=== PATIENT | male | born 1965 ===

== ENCOUNTER 2017-04-01 15:01 | Emergency (ER) | payer BC ==
[2017-04-01 15:08] VITALS: O2SAT 99
[2017-04-01] MEDS ORDERED: Sodium Chloride 0.9% 1,000 ML IV STA (15:37)
--- NOTE | 2017-04-01 15:37 | C.PDOC ---
History Of Present Illness A 51 year old male, whose past medical includes, diabetes and hypertension, presents to the emergency department for left shoulder pain, which began 2 days ago. The patient admits to not taking his blood pressure medication and DM medications for the last 8 months. He notes his doctor no longer takes his insurance and he has not went to a new doctor. The patient reports he took Tylenol 2 days ago, which seemed to help the pain. When the pain came back he states he tried icy-hot and Advil. The patient denies any recent trauma, fever, chest pain, shortness of breath, nausea, vomiting, or any other complaints at this time. Time Seen by Provider: 04/01/17 15:10 Chief Complaint (Nursing): Upper Extremity Problem/Injury History Per: Patient History/Exam Limitations: no limitations Onset/Duration Of Symptoms: Days (x 2 days ) Current Symptoms Are (Timing): Still Present Past Medical History Vital Signs: Last Vital Signs Temp 98 F 04/01/17 17:45 Pulse 80 04/01/17 17:45 Resp 16 04/01/17 17:45 BP 150/92 H 04/01/17 17:45 Pulse Ox 99 04/01/17 17:45 Family History: States: No Known Family Hx - Social History Hx Alcohol Use: Yes Hx Substance Use: No Review Of Systems Except As Marked, All Systems Reviewed And Found Negative. Constitutional: Negative for: Fever Cardiovascular: Negative for: Chest Pain Respiratory: Negative for: Shortness of Breath Gastrointestinal: Negative for: Nausea, Vomiting Physical Exam - Physical Exam Appears: Well, Non-toxic, No Acute Distress Skin: Normal Color, Warm, Dry Head: Atraumatic, Normacephalic Eye(s): bilateral: Normal Inspection, PERRL, EOMI Nose: Normal Neck: Normal ROM, Other (mild left cervical tenderness) Back: Normal Inspection, Other (left sided trapezius tenderness; normal ROM) Extremity: Normal ROM Neurological/Psych: Oriented x3, Normal Speech, Normal Cognition ED Course And Treatment - Laboratory Results Result Diagrams: 04/01/17 15:49 04/01/17 15:49 O2 Sat by Pulse Oximetry: 99 - Other Rad C-Spine xray X-Ray: Viewed By Me, Read By Radiologist Interpretation: Accession No. : [id number]. Patient Name / ID : CHYNA GONZALES / [id number]. Exam Date : 04/01/2017 15:48:17 ( Approved ). Study Comment : Sex / Age : M / 51Y. Creator : Traec Lerma MD. Dictator : Trace Lerma MD. Experience Planning Strategist : Associate Chemist : Trace Lerma MD. Approver2 : Report Date : 04/01/2017 17:50:24. My Comment : . PROCEDURE: Cervical Spine Radiographs. HISTORY: Pain. COMPARISON: None. FINDINGS: BONES: Straightened curvature is appreciate. Multilevel spondylosis identified inferior cervical spine. No fracture or spondylolisthesis is identified. The odontoid process appears intact with normal-appearing C1-2 articulation and craniocervical junction. DISC SPACES: Advanced degenerate disease is suggested at C6-7. SOFT TISSUES: Normal. No prevertebral soft tissue swelling. OTHER FINDINGS: None. IMPRESSION: Degenerative spondylosis C6-7 without fracture or spondylolisthesis identified. Straightened cervical curvature is encountered. CXR X-Ray: Viewed By Me, Read By Radiologist Interpretation: Accession No. : [id number]. Patient Name / ID : CHYNA GONZALES / [id number]. Exam Date : 04/01/2017 15:44:59 ( Approved ). Study Comment : Sex / Age : M / 51Y. Creator : Trace Lerma MD. Dictator : Trace Lerma MD. Experience Planning Strategist : Associate Chemist : Trace Lerma MD. Approver2 : Report Date : 04/01/2017 17:48:15. My Comment : . PROCEDURE: CHEST RADIOGRAPH, 1 VIEW. HISTORY: neck pain. COMPARISON: None available. FINDINGS: LUNGS: Clear. PLEURA: No pneumothorax or pleural fluid seen. CARDIOVASCULAR: Normal. OSSEOUS STRUCTURES: Unremarkable. VISUALIZED UPPER ABDOMEN: Normal. OTHER FINDINGS: None. IMPRESSION: No acute infiltrate. No acute cardiac pathology appreciable. Medical Decision Making Medical Decision Making: Treatment Plan: -- EKG -- Chest X-ray -- Cervical Spine & Lateral radiology -- Labs -- Toradol, IV Fluids Progress Notes: EKG BPM: 88 Rhythm: Normal sinus rhythm Notes: 1st degree AV block Blood Sugar: 322 On re-evaluation patient feels better, BS went down. Patient will be d/c home with PMD follow up. Disposition - Disposition Referrals: Oneil Carlos MD [Staff Provider] - Disposition: HOME/ ROUTINE Disposition Time: 17:31 Condition: STABLE Additional Instructions: Follow up with PMD within 1-2 days. Return to Ed if feel worse. Prescriptions: metFORMIN [glucOPHAGE] 500 mg PO BID #60 tab Lidocaine 5% [Lidoderm] 1 patch TP DAILY #30 patch Ibuprofen [Motrin Tab] 600 mg PO Q8 #30 tab Methocarbamol [Robaxin] 500 mg PO TID #60 tab Lisinopril [Zestril] 10 mg PO DAILY #30 tab Instructions: Hypertension (ED), Muscle Spasm (ED), Diabetic Hyperglycemia (ED) Forms: [facility] (Urdu) - Clinical Impression Clinical Impression: Muscle spasm of left shoulder, Uncontrolled diabetes mellitus - Scribe Statement The provider has reviewed the documentation as recorded by the Scribe Sherri Benjamin All medical record entries made by the Scribe were at my direction and personally dictated by me. I have reviewed the chart and agree that the record accurately reflects my personal performance of the history, physical exam, medical decision making, and the department course for this patient. I have also personally directed, reviewed, and agree with the discharge instructions and disposition.
[2017-04-01 15:53] LABS: BASO # 0.1 K/uL (0.0-0.2); EOS # 0.1 K/uL (0.0-0.7); EOS % 1.7 % (0.0-4.0); HEMATOCRIT 47.7 % (35.0-51.0); LYMPH # 1.6 K/uL (1.0-4.3); MEAN CORPUSCULAR HEMOGLOBIN 31.4 pg (27.0-31.0); MEAN CORPUSCULAR HGB CONC 34.6 g/dL (33.0-37.0); MEAN PLATELET VOLUME 10.2 fL (7.2-11.7); MONO # 0.6 K/uL (0.0-0.8); MONO % 9.4 % (0.0-10.0); RED CELL DISTRIBUTION WIDTH 12.5 % (11.5-14.5); WHITE BLOOD COUNT 6.8 K/uL (4.8-10.8)
[2017-04-01 16:05] LABS: ALB/GLOB RATIO 1.2 (1.0-2.1); ALKALINE PHOSPHATASE 105 U/L (38-126); ALT/SGPT 69 U/L (21-72); AST/SGOT 43 U/L (17-59); BILIRUBIN,TOTAL 1.1 mg/dL (0.2-1.3); BLOOD UREA NITROGEN 18 mg/dL (9-20); CALCIUM 9.6 mg/dl (8.6-10.4); CARBON DIOXIDE 27 mmol/L (22-30); CHLORIDE 96 mmol/L (98-107); GFR AFRICAN-AMERICAN > 60; GLUCOSE,RANDOM 355 mg/dL (75-110); POTASSIUM 4.2 mmol/L (3.6-5.2); SODIUM 137 mmol/L (132-148); TOTAL PROTEIN 7.4 g/dL (6.3-8.3)
[2017-04-01 17:46] VITALS: BP 150/92; PULSE 80; RESP 16; TEMP 98
--- NOTE | 2017-04-01 17:50 | RAD ---
PROCEDURE: CHEST RADIOGRAPH, 1 VIEW HISTORY: neck pain COMPARISON: None available. FINDINGS: LUNGS: Clear. PLEURA: No pneumothorax or pleural fluid seen. CARDIOVASCULAR: Normal. OSSEOUS STRUCTURES: Unremarkable. VISUALIZED UPPER ABDOMEN: Normal. OTHER FINDINGS: None. IMPRESSION: No acute infiltrate. No acute cardiac pathology appreciable.
--- NOTE | 2017-04-01 17:52 | RAD ---
PROCEDURE: Cervical Spine Radiographs. HISTORY: Pain. COMPARISON: None. FINDINGS: BONES: Straightened curvature is appreciate. Multilevel spondylosis identified inferior cervical spine. No fracture or spondylolisthesis is identified. The odontoid process appears intact with normal-appearing C1-2 articulation and craniocervical junction. DISC SPACES: Advanced degenerate disease is suggested at C6-7. SOFT TISSUES: Normal. No prevertebral soft tissue swelling. OTHER FINDINGS: None. IMPRESSION: Degenerative spondylosis C6-7 without fracture or spondylolisthesis identified. Straightened cervical curvature is encountered.
--- NOTE | 2017-04-05 00:36 | CARD ---
APPROVED REPORT EKG Measurement Heart [id number] MD [id number] <Conclusion> Sinus rhythm with 1st degree AV block Otherwise normal ECG
== END 2017-04-01 17:53 | disposition home or self-care (01) ==
LOC: C.ER 15:01
DX: E11.9 Type 2 diabetes mellitus without complications (principal); M62.838 Other muscle spasm; I10 Essential (primary) hypertension; Z91.19 Patient's noncompliance with other medical treatment and regimen
CPT/HCPCS: 71010; 72040; 80053; 82948; 85025; 96361; 96374; 99284; J1885; J7040

== ENCOUNTER 2018-10-16 14:03 | Emergency (ER) | payer BC ==
[2018-10-16 14:10] VITALS: BP 153/94; PULSE 86; TEMP 98.7; O2SAT 98
--- NOTE | 2018-10-16 16:02 | RAD ---
Date of service: 10/16/2018 HISTORY: upper back pain COMPARISON: 04/01/2017 TECHNIQUE: Chest PA and lateral FINDINGS: LUNGS: No active pulmonary disease. PLEURA: No significant pleural effusion identified. No pneumothorax apparent. CARDIOVASCULAR: No aortic atherosclerotic calcification present. Normal cardiac size. No pulmonary vascular congestion. OSSEOUS STRUCTURES: Thoracic spondylosis. VISUALIZED UPPER ABDOMEN: Normal. OTHER FINDINGS: None. IMPRESSION: No active disease. No interval pathology noted.
--- NOTE | 2018-10-16 16:05 | C.PDOC ---
History Of Present Illness 53 y/o male,w/PMhx of diabetes and HTN, presents to the ER complaining of bilateral upper back pain which has been present for the past 2 weeks. 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 Patient states that he has to drive on bumpy roads which makes the pain worse. He notes that pain is also worse with deep breathing and movement.Denies having falls, CP,SOB, fever,and chills. Chief Complaint (Nursing): Back Pain History Per: Patient History/Exam Limitations: no limitations Onset/Duration Of Symptoms: Days Current Symptoms Are (Timing): Still Present Severity: Moderate Past Medical History Reviewed: Historical Data, Nursing Documentation, Vital Signs Vital Signs: Last Vital Signs Temp 98.7 F 10/16/18 14:06 Pulse 86 10/16/18 14:06 Resp 17 10/16/18 14:06 BP 153/94 H 10/16/18 14:06 Pulse Ox 98 10/16/18 14:06 - Medical History PMH: HTN Surgical History: No Surg Hx Family History: States: No Known Family Hx - Social History Hx Alcohol Use: Yes Hx Substance Use: No - Immunization History Hx Tetanus Toxoid Vaccination: No Hx Influenza Vaccination: No Hx Pneumococcal Vaccination: No Review Of Systems Except As Marked, All Systems Reviewed And Found Negative. Constitutional: Negative for: Fever, Chills Cardiovascular: Negative for: Chest Pain Respiratory: Negative for: Shortness of Breath Musculoskeletal: Positive for: Back Pain Neurological: Negative for: Weakness, Numbness Physical Exam - Physical Exam Appears: Non-toxic, No Acute Distress Skin: Normal Color, Warm, Dry Head: Atraumatic, Normacephalic Eye(s): bilateral: Normal Inspection Nose: Normal Oral Mucosa: Moist Neck: Supple Chest: Symmetrical Cardiovascular: Rhythm Regular Respiratory: Normal Breath Sounds, No Rales, No Rhonchi, No Wheezing Gastrointestinal/Abdominal: Normal Exam, Soft, No Tenderness, No Guarding, No Rebound Back: Other (tenderness to mid thoracic area) Neurological/Psych: Oriented x3, Normal Speech ED Course And Treatment O2 Sat by Pulse Oximetry: 98 (RA) Pulse Ox Interpretation: Normal Medical Decision Making Medical Decision Making: Plan: --CXR --Motrin Disposition Counseled Patient/Family Regarding: Studies Performed, Diagnosis, Need For Followup - Disposition Referrals: Oneil Carlos MD [Staff Provider] - Disposition: HOME/ ROUTINE Disposition Time: 16:24 Condition: IMPROVED Prescriptions: Ibuprofen [Motrin Tab] 800 mg PO TID PRN #30 tab PRN Reason: Pain, Moderate (4-7) Instructions: Muscle Strain (DC), Muscle and Bone Pain (DC) Forms: [facility] (German), Gen Discharge Inst [place] Citizen, [facility] ([place]), General Discharge Instructions - POA Present On Arrival: None - Clinical Impression Clinical Impression: Musculoskeletal pain, Muscle strain - Scribe Statement The provider has reviewed the documentation as recorded by the Ananthibjohnathan Crooks Provider Attestation: All medical record entries made by the Ananthibjohnathan were at my direction and personally dictated by me. I have reviewed the chart and agree that the record accurately reflects my personal performance of the history, physical exam, medical decision making, and the department course for this patient. I have also personally directed, reviewed, and agree with the discharge instructions and disposition.
[2018-10-16 16:35] VITALS: RESP 20
== END 2018-10-16 16:34 | disposition home or self-care (01) ==
LOC: C.ER 14:03
DX: M79.10 Myalgia, unspecified site (principal); S29.012A Strain of muscle and tendon of back wall of thorax, initial encounter; X58.XXXA Exposure to other specified factors, initial encounter; Y99.0 Civilian activity done for income or pay; E11.9 Type 2 diabetes mellitus without complications; I10 Essential (primary) hypertension